=== PATIENT | female | born 1975 | race Caucasian/White ===

== ENCOUNTER 2018-05-26 09:27 | Day surgery (SDC) | payer OTHER | END 2018-05-26 13:55 | disposition home or self-care (01) | LOC: AMB-ENDOS 09:27 | DX: K29.30 Chronic superficial gastritis without bleeding (principal); K44.9 Diaphragmatic hernia without obstruction or gangrene; B96.81 Helicobacter pylori [H. pylori] as the cause of diseases classified elsewhere ==

== ENCOUNTER 2019-06-15 10:50 | Day surgery (SDC) | payer OTHER | END 2019-06-15 17:00 | disposition home or self-care (01) | LOC: AMB-ENDOS 10:50 | DX: K63.5 Polyp of colon (principal) ==

== ENCOUNTER 2019-07-10 07:00 | Day surgery (SDC) | payer OTHER ==
[~2019-07-10] VITALS: Ht 160 cm; Wt 93.4 kg
[~2019-07-10 07:00] MED LIST: IRBESARTAN150 MG PO
[2019-07-10] MEDS ORDERED: PERCOCET 5-3251 EACH PO (09:59)
[2019-07-10] MEDS ORDERED: SURFAK240 M1 PO (09:59)
[2019-07-10] MEDS ORDERED: NEURONTIN800 MG PO (09:59)
[2019-07-10] MEDS ORDERED: POLY119PG PO (09:59)
[2019-07-10] MEDS ORDERED: CIPRO500 MG PO (10:51)
== END 2019-07-10 13:00 | disposition home or self-care (01) ==
LOC: CIR.AMB 07:00
DX: K80.10 Calculus of gallbladder with chronic cholecystitis without obstruction (principal); K42.9 Umbilical hernia without obstruction or gangrene; K43.2 Incisional hernia without obstruction or gangrene